=== PATIENT | female | born 2000 | race Caucasian/White ===

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

== ENCOUNTER 2022-09-10 15:46 | Emergency (ER) | payer OTHER, SELFPAY ==
[2022-09-10 15:56] VITALS: BP 122/61; PULSE 79; RESP 16; TEMP 36.7; O2SAT 100
--- NOTE | 2022-09-10 16:40 | ED.ABDPAIN ---
HPI - Abdominal Pain General Chief Complaint: Urogenital-Female Stated Complaint: Abdominal Pain,Nausea Time Seen by Provider: 09/10/22 16:35 Source: patient, RN notes reviewed and old records reviewed Mode of arrival: ambulatory Limitations: no limitations History of Present Illness HPI narrative: 21-year-old female who presents to [facility] with complaints for the past 4 day history of nausea vomiting with complaints of intermittent colicky pain under the umbilicus radiating to the right mid lower abdomen. Patient states she has had problems with weight loss and also nausea intermittently for the past 8 months. Patient reports she has had rapid weight loss over past 8 month's with weight starting at around 185 and now down to about 123 she has had hair loss also. Patient reports that she has history of past urinary tract infections, denies any suprapubic pain or CVA tenderness or present burning with urination, is sexually active unsure of any exposure to STDs does state some increase in vaginal discharge, denies any itching. Patient denies any fevers chills or sweats. MD elicited complaint: abdominal pain and other (nausea and vomiting) Onset (ago): day(s) (increase symptoms past 4 days) Pain Consistency: colicky Location: RLQ Pain scale (0-10): 4 Associated symptoms: nausea and vomiting Treatments prior to arrival: other (none) Related Data Home Medications Medication Instructions Recorded Confirmed No Home Medications 09/10/22 09/10/22 Allergies Allergy/AdvReac Type Severity Reaction Status Date / Time No Known Allergies Allergy Verified 09/10/22 16:00 Review of Systems Review of Systems: CONSTITUTIONAL: Denies fever, chills, or sweats. EYES: Denies visual changes, redness, or discharge. ENT: Denies rhinorrhea, congestion, sore throat, or otalgia. CARDIOVASCULAR: Denies chest pain, palpitations, or edema. RESPIRATORY: Denies cough or dyspnea. GASTROINTESTINAL: Reports pain under umbilicus radiating to right mid lower abdomen,positive for nausea, vomiting, or diarrhea. GENITOURINARY: Denies dysuria or hematuria. SKIN: Denies rash or itching. MUSCULOSKELETAL: Denies back pain, joint pain, or myalgia. NEUROLOGIC: Denies headache, numbness, or weakness. PSYCHIATRIC: Positive for anxiety or depression. All systems reviewed & are unremarkable except as noted in HPI and below PMFSH Past Medical History Medical History (Updated 09/11/22 @ 09:59 by Leslie Fry, ALVIN) Anxiety Depressive disorder Mononucleosis 2020 Urinary tract infection Surgical History Surgical History No pertinent past surgical history Family History Family History Grandparent Family history of malignant neoplasm Mother No pertinent past medical history Father No pertinent past medical history Other Family history of malignant neoplasm of breast Social History Social History Smoking status: Never smoker Alcohol intake: never Substance use: never Lack of Transportation: No Lack of Food: Never True Current Housing: I Have Housing Concerned About Future Housing: No Difficulty Paying Gas/Electric Bills: No Difficulty Paying for Meds: No Currently Unemployed: No Education: High School Diploma/GED Difficulty w/ Childcare or Family Care: No Living arrangements: with friend(s) Occupation/Education: student Gender identity (if verbalized by the patient): Female Spiritual care concerns: No Comments At time of signature, agree with nursing past medical, surgical, social and family history. There is no relevant family history pertinent to the presenting complaint Exam Narrative: GENERAL: Well-appearing, well-nourished, and in no acute distress. HEAD: Normocephalic, atraumatic. EYES: PERRLA and EOMI. ENT: Nares cl
== END 2022-09-10 16:50 | disposition home or self-care (01) ==
PROVIDERS: Emergency Provider Registered Nurse
DX: R10.31 Right lower quadrant pain (principal); R11.2 Nausea with vomiting, unspecified
CPT/HCPCS: 81003; 81025; 87086; 87088; 87491; 87591; 87661; 99213; G0463

== ENCOUNTER 2022-09-10 17:50 | Observation (INO) | payer OTHER, SELFPAY ==
--- NOTE | ~2022-09-10 | US_ITS ---
Limited Abdominal Sonogram: Real-time sonographic imaging of the right upper quadrant was performed. Clinical History: Nausea and vomiting Findings: The liver appears normal with no evidence of mass lesion or bile duct dilatation. Main por carmel vein demonstrates normal direction of flow. The gallbladder is well distended, without evidence o f stone or wall thickening. Partial focal cholesterolosis or septation the gallbladder. The common bi le duct measures 3 mm. The visualized pancreas, aorta, and IVC are unremarkable. Impression: Possible focal cholesterolosis or septation in the gallbladder. No other significant findings. Reviewed, dictated and finalized at location M. DIRECTOR Impression: Possible focal cholesterolosis or septation in the gallbladder. No other significant findings.
--- NOTE | ~2022-09-10 | US_ITS ---
Pelvic ultrasound. Clinical History: Pelvic pain Technique: Realtime transabdominal and transvaginal scanning of the pelvis was performed. Color flow Doppler and Doppler spectral analysis were performed. Findings: The uterus is anteverted. The endometrial stripe has a thickness of 11 mm. No focal mass i s identified. The right ovary measures 3.9 x 2.8 x 1.8 cm. No significant right ovarian or adnexal mass is seen. The left ovary measures 3.5 x 1.3 x 3.1 cm. No significant left ovarian or adnexal mass is seen. Vascular flow present in both ovaries on Doppler spectral analysis. There is no evidence of free fluid in the cul de sac. Impression: No significant abnormality seen. Reviewed, dictated and finalized at [facility]. ENT ATTENDANT Impression: No significant abnormality seen.
--- NOTE | ~2022-09-10 | US_ITS ---
Pelvic ultrasound. Clinical History: Right lower quadrant pain Technique: Realtime transabdominal scanning of the pelvis was performed. Patient refused transvaginal imaging. Findings: The uterus is anteverted. The endometrial stripe has a thickness of 11 mm. No focal mass i s identified. Neither ovary visualized. Appendix not visualized. There is no evidence of free fluid in the cul de sac. Impression: No significant abnormality seen. Appendix not visualized. Ovaries not visualized. Reviewed, dictated and finalized at location M. LEAF READER Impression: No significant abnormality seen. Appendix not visualized. Ovaries not visualize d.
--- NOTE | ~2022-09-10 | US_ITS ---
EXAMINATION: US pelvic complete w TV DATE: 09/10/2022 21:22 INDICATION: Right sided pelvic pain, vag discharge TECHNIQUE: Multiple transabdominal and endovaginal sonographic images of the pelvis were obtained. COMPARISON: None. FINDINGS: Uterus: 8.6 x 4.5 x 5.3 cm. Endometrial complex measures 11 mm. Right Ovary: 3.3 x 1.6 x 1.7 cm. Vascular flow is not present. Left Ovary: 3.1 x 1.2 x 1.6 cm. Vascular flow is present. There is small volume free fluid in the pelvis, still within visualized range. IMPRESSION: No vascular flow detected in the right ovary, a finding concerning for ovarian torsion. Results reported telephonically to Debi Rubi PA-C by Dr. Allen at 9:53 PM on 09/10/2022. Reviewed, dictated and finalized at location K. ACE PUNCHER IMPRESSION: No vascular flow detected in the right ovary, a finding concerning for ovarian torsion. Results reported telephonically to Debi Rubi PA-C by Dr. Allen at 9: 53 PM on 09/10/2022.
[2022-09-10 18:06] VITALS: BP 116/79; PULSE 71; RESP 18; TEMP 36.8; O2SAT 100
[2022-09-10 19:08] LABS: Basophils Absolute Auto 0.1 K/mm3 (0.0-0.1); Basophils Percent Auto 0.8 % (0.2-1.2); Eosinophils Absolute Auto 0.1 K/mm3 (0-0.3); Eosinophils Percent Auto 1.9 % (0-4.4); Hematocrit 39.5 % (37.0-47.0); Hemoglobin 12.3 g/dL (12.0-15.0); Immature Granulocyte Absolute 0.02 K/mm3 (0.00-0.031); Immature Granulocyte Percent A 0.3 % (0-0.5); Lymphocytes Absolute Auto 2.33 K/mm3 (0.9-3.2); Lymphocytes Percent Auto 36.6 % (18.3-44.2); Mean Corpuscular HGB Conc 31.1 g/dl (32-36); Mean Corpuscular Hemoglobin 25.2 pg (26-34); Mean Corpuscular Volume 80.9 fl (80-100); Mean Platelet Volume 9.4 fl (7.4-10.4); Monocytes Absolute Auto 0.6 K/mm3 (0.1-0.6); Monocytes Percent Auto 8.6 % (2.6-8.5); Neutrophils Absolute Auto 3.3 K/mm3 (1.3-6.7); Neutrophils Percent Auto 51.8 % (45.5-73.1); Platelet Count Result 297 k/mm3 (150-375); Red Blood Count 4.88 M/mm3 (4.2-5.4); Red Cell Distribution Width 15.2 % (11.5-14.5); White Blood Count 6.4 K/mm3 (4.5-10.0)
[2022-09-10 19:13] LABS: Appearance Urine Turbid (Clear); Bacteria Urine 2+ /hpf; Bilirubin Urine Negative (Negative); Blood Urine 2+ (Negative); Color Urine Yellow (Yellow); Glucose Urine UA Negative (Negative); Ketones Urine Negative (Negative); Leukocyte Esterase Ur 3+ LEU/UL (Negative); Nitrate Urine Negative (Negative); Non Pathogenic Casts 0-2; Protein Urine Negative (Negative); RBC Urine 0-2 /hpf (0-2); Specific Grav Ur 1.018 (1.001-1.035); Squamous Epithelial Cell Urine Many /hpf (Few)
[2022-09-10 19:24] LABS: Add Urine Microscopic? YES; Alanine Aminotransferase 15 U/L (6-35); Albumin Level 4.6 g/dL (3.7-5.6); Alkaline Phosphatase 69 U/L (45-116); Anion Gap 4 mmol/L (8-16); Aspartate Amino Transferase 18 U/L (14-36); Bilirubin,Total 0.4 mg/dL (0.2-1.3); Blood Urea Nitrogen 10 mg/dL (8-21); Calcium 9.8 mg/dL (8.9-10.7); Carbon Dioxide 26 mmol/L (22-30); Chloride 106 mmol/L (98-107); Estimated CRCL calculation 85 ml/min; Estimated Glomerular Filt Rate > 60; Glucose 82 mg/dL (65-110); Lipase 96 U/L (23-300); Potassium 4.2 mmol/L (3.4-5.0); Sodium 136 mmol/L (134-143)
[2022-09-10 19:37] LABS: Pregnancy On Board Control Positive; Urine Pregnancy Test Negative
--- NOTE | 2022-09-10 20:35 | ED.ABDPAIN ---
HPI - Abdominal Pain General Chief Complaint: Abdominal Pain <CATE Urbano Last Filed: 09/11/22 02:53> Stated Complaint: Abdominal pain, weight loss <CATE Urbano Last Filed: 09/11/22 02:53> Time Seen by Provider: 09/10/22 19:23 <CATE Urbano Last Filed: 09/11/22 02:53> History of Present Illness HPI narrative: 21 year old female here for evaluation of lower abdominal pain x 8 months. Patient states that the pain is usually present in her right lower abdomen and also in her pelvic region, coming on at random without warning. Denies relation to meals. She reports a large weight loss over the past 8 months since she had noted this pain. Also reports numerous episodes of diarrhea that she states are pale yellow in color and sometimes greasy. Also reports increased vaginal discharge. No nausea or vomiting, fevers or chills, sick contacts. She came in to be evaluated to the ED today because she recently received insurance and her pain acutely worsened. <CATE Urbano Last Filed: 09/11/22 02:53> Related Data Allergies/Adverse Reactions: Allergies Allergy/AdvReac Type Severity Reaction Status Date / Time No Known Allergies Allergy Verified 09/10/22 16:00 <CATE Urbano Last Filed: 09/11/22 02:53> Review of Systems Review of Systems: Gen.: Denies fevers or chills Eyes: Denies eye pain or visual change ENT: Denies congestion Respiratory: Denies shortness of breath or cough CV: Denies chest pain or palpitations GI: Denies abdominal pain nausea, emesis or diarrhea reports vaginal discharge and right-sided pelvic pain. Musculoskeletal: Denies back pain or muscle pain Neuro: Denies numbness, tingling, weakness or focal weakness Skin: Denies rash Except as documented, all other systems reviewed and negative <CATE Urbano Last Filed: 09/11/22 02:53> [facility] Past Medical History Medical History: Medical History (Updated 09/11/22 @ 09:59 by Leslie Fry NP) Anxiety Depressive disorder Mononucleosis 2020 Urinary tract infection <Debi Rubi PA-C - Last Filed: 09/11/22 02:53> Surgical History Surgical History: Surgical History No pertinent past surgical history <Debi Rubi PA-C - Last Filed: 09/11/22 02:53> Family History Family History: Family History Grandparent Family history of malignant neoplasm Mother No pertinent past medical history Father No pertinent past medical history Other Family history of malignant neoplasm of breast <Debi Rubi PA-C - Last Filed: 09/11/22 02:53> Social History Social History: Social History Smoking status: Never smoker Alcohol intake: never Substance use: never Lack of Transportation: No Lack of Food: Never True Current Housing: I Have Housing Concerned About Future Housing: No Difficulty Paying Gas/Electric Bills: No Difficulty Paying for Meds: No Currently Unemployed: No Education: High School Diploma/GED Difficulty w/ Childcare or Family Care: No Living arrangements: with friend(s) Occupation/Education: student Gender identity (if verbalized by the patient): Female Spiritual care concerns: No <Debi Rubi PA-C - Last Filed: 09/11/22 02:53> Exam Narrative: APPEARANCE: Thin but otherwise well-appearing. Head: Normocephalic and atraumatic. EYES: PERRLA/EOMI, conjunctivae clear NOSE: No nasal drainage EARS: External ear normal in appearance THROAT: Oropharynx is clear. Mucous membranes are moist. NECK: Supple. No adenopathy, no masses. RESPIRATORY: Airway patent, respirations nonlabored. Clear to auscultation bilaterally, no rales, rhonchi, wheezing. CARDIOV
[2022-09-10] MEDS: KETOROLAC 30 MG/ML VIAL (*BKC) IM (21:11)
[2022-09-10 22:28] VITALS: BP 124/92; PULSE 64; RESP 22; O2SAT 100
[2022-09-10] MEDS: SODIUM CHLORIDE 0.9% IV 1,000 ML 999 ML IV CONT (23:02)
[2022-09-10] MEDS: LORazepam INJ (*CRX) 2 MG/ML VIAL 0.5 MG IV PUSH (23:03)
[2022-09-10 23:20] VITALS: BP 118/83; PULSE 73; RESP 18; TEMP 37; O2SAT 100
[2022-09-11] MEDS: SODIUM CHLORIDE 0.9% IV 1,000 ML 150 ML IV CONT (00:06)
[2022-09-11] MEDS: ZOLPIDEM TARTRATE (*CRX) 5 MG TABLET PO (01:20)
[2022-09-11 09:15] VITALS: BP 110/65; PULSE 76; RESP 16; TEMP 37.2; O2SAT 100
[2022-09-11] MEDS: KETOROLAC 30 MG/ML VIAL (*BKC) 15 MG IV PUSH (10:10)
[2022-09-11] MEDS: ONDANSETRON INJ 4 MG/2 ML VIAL (11:05)
[2022-09-11 11:35] VITALS: BP 117/66; PULSE 69; RESP 16; TEMP 36.7; O2SAT 100
--- NOTE | 2022-09-15 08:25 | PM.IMHP ---
H&P: HPI History of Present Illness Date/Time: 09/15/22 08:25 Chief Complaint: abdominal pain Narrative: The patient is a 21-year-old 0 admitted through the emergency room. Per the emergency room workup pelvic ultrasound was performed secondary to right lower quadrant pain which showed no blood flow to the right ovary which measured 3x1 and 0.5cm. Patient required only Toradol for control of her pain. It was suspected to to the level of pain and the small size of the ovary that the ovary was not torsed. Patient was admitted overnight for observation and required no additional pain medication and slept through the night with a dose of Ambien. On my arrival to the patient room she is sound asleep and had to be awakened. The plan for a repeat ultrasound to verify good blood flow to the right ovary was discussed with the patient. The patient became quite angry with me and the plan. The patient stated she would just rather leave than have the ultrasound repeated if I was not planning to just remove her ovary. The patient went on to state that she came to the emergency room because she just found out she had insurance and the pain had been present for approximately 8 months. In addition the patient stated she had been having upper abdominal pain and nausea and vomiting with a 70lb weight loss. Discussed with the patient that since she had been NPO we could also order a gallbladder ultrasound. The patient repeatedly stated that I was not listening or taking her seriously and she was just planning to leave. The patient's sister asked for a moment to talk with her and after that conversation the patient agreed to stay and have the ultrasound but declined vaginal ultrasound. The patient went for the pelvic ultrasound which was not able to visualize either ovary. The right upper quadrant ultrasound was also not performed at that time. After further discussion the patient agreed to the pelvic ultrasound and right upper quadrant ultrasound which were performed and normal. The right ovary had good blood flow and was the same size as the night before. The patient was discharged home on Toradol and Zofran and instructed to follow-up with primary care physician as assigned by the emergency room and follow-up with me to further investigate the cause of her symptoms. REPLACED BY [facility] Past Medical History Medical History (Updated 09/11/22 @ 09:59 by Leslie Fry NP) Anxiety Depressive disorder Mononucleosis 2020 Urinary tract infection Surgical History Surgical History No pertinent past surgical history Family History Family History Grandparent Family history of malignant neoplasm Mother No pertinent past medical history Father No pertinent past medical history Other Family history of malignant neoplasm of breast Social History Social History Smoking status: Never smoker Alcohol intake: never Substance use: never Lack of Transportation: No Lack of Food: Never True Current Housing: I Have Housing Concerned About Future Housing: No Difficulty Paying Gas/Electric Bills: No Difficulty Paying for Meds: No Currently Unemployed: No Education: High School Diploma/GED Difficulty w/ Childcare or Family Care: No Living arrangements: with friend(s) Occupation/Education: student Gender identity (if verbalized by the patient): Female Spiritual care concerns: No Meds Home Medications and Allergies Home Medications Medication Instructions Recorded Confirmed Type ketorolac 10 mg tablet 10 mg PO Q6H PRN pain 5 days #20 09/11/22 Rx tabs ondansetron 4 mg disintegrating 4 mg PO Q6H NAUSEA #30 tabs 09/11/22 Rx tablet Allergies Allergy/AdvReac Type Severity Reaction Status Date / Time No Known Jose
--- NOTE | 2022-09-15 08:34 | PM.OBTRLD ---
OB - Triage/Final Diagnosis Visit Information Reason for evaluation: other ( abdominal pain; nausea and vomiting) Comments/Additional reasons for admission: I have assessed the risk for this patient, Mohit Jayden Ventura, and determined that she would benefit from observation care. Evaluation Laboratory results: Laboratory Tests 09/10/22 09/10/22 09/10/22 18:56 18:56 18:56 WBC 6.4 RBC 4.88 Hgb 12.3 Hct 39.5 MCV 80.9 MCH 25.2 L MCHC 31.1 L RDW 15.2 H Plt Count 297 MPV 9.4 Immature Gran % (Auto) 0.3 Neut % (Auto) 51.8 Lymph % (Auto) 36.6 Luna % (Auto) 8.6 H Eos % (Auto) 1.9 Baso % (Auto) 0.8 Lymph # (Auto) 2.33 Luna # (Auto) 0.6 Eos # (Auto) 0.1 Baso # (Auto) 0.1 Abs Immat Gran (auto) 0.02 Absolute Neuts (auto) 3.3 Absolute Nucleated RBC 0.0 Nucleated RBC % 0.0 Sodium 136 Potassium 4.2 Chloride 106 Carbon Dioxide 26 Anion Gap 4 L BUN 10 Creatinine 0.80 Estim Creat Clear Calc 85 Estimated GFR > 60 Glucose 82 Calcium 9.8 Total Bilirubin 0.4 AST 18 ALT 15 Alkaline Phosphatase 69 Total Protein 8.0 Albumin 4.6 Lipase 96 Urine Color Yellow Urine Appearance Turbid H Urine pH 7.0 Ur Specific [place] 1.018 Urine Protein Negative Urine Glucose (UA) Negative Urine Ketones Negative Ur Blood (Man) 2+ H Urine Nitrate Negative Urine Bilirubin Negative Urine Urobilinogen 1.0 Leukocyte Esterase Rfl 3+ H Urine RBC 0-2 Urine WBC 6-10 H Ur Squamous Epith Cells Many H Urine Bacteria 2+ H Urine Casts 0-2 Urine Test 09/10/22 18:56 WBC RBC Hgb Hct MCV MCH MCHC RDW Plt Count MPV Immature Gran % (Auto) Neut % (Auto) Lymph % (Auto) Luna % (Auto) Eos % (Auto) Baso % (Auto) Lymph # (Auto) Luna # (Auto) Eos # (Auto) Baso # (Auto) Abs Immat Gran (auto) Absolute Neuts (auto) Absolute Nucleated RBC Nucleated RBC % Sodium Potassium Chloride Carbon Dioxide Anion Gap BUN Creatinine Estim Creat Clear Calc Estimated GFR Glucose Calcium Total Bilirubin AST ALT Alkaline Phosphatase Total Protein Albumin Lipase Urine Color Urine Appearance Urine pH Ur Specific [place] Urine Protein Urine Glucose (UA) Urine Ketones Ur Blood (Man) Urine Nitrate Urine Bilirubin Urine Urobilinogen Leukocyte Esterase Rfl Urine RBC Urine WBC Ur Squamous Epith Cells Urine Bacteria Urine Casts Urine Test Negative
== END 2022-09-11 14:30 | disposition home or self-care (01) ==
LOC: ANHED 22:13 → ANHOB2 22:33
PROVIDERS: Emergency Medicine; Admitting Provider Obstetrics & Gynecology Gynecology; Emergency Provider Physician Assistant; Visit Provider Obstetrics & Gynecology Gynecology
DX: R10.31 Right lower quadrant pain (principal); R11.2 Nausea with vomiting, unspecified; R63.4 Abnormal weight loss; Z68.52 Body mass index [BMI] pediatric, 5th percentile to less than 85th percentile for age; N89.8 Other specified noninflammatory disorders of vagina; F41.9 Anxiety disorder, unspecified; F32.A Depression, unspecified; Z87.440 Personal history of urinary (tract) infections
CPT/HCPCS: 36415; 76705; 76830; 76856; 80053; 81001; 81003; 81025; 83690; 85025; 87086; 87088; 87491; 87591; 87661; 96365; 96372; 96374; 96375; 99213; 99285; A9270; G0378; G0379; G0463; J0696; J1885; J2060; J2405; J7030

== ENCOUNTER 2024-10-19 12:26 | Emergency (ER) | payer BC, SELFPAY ==
[2024-10-19 12:39] VITALS: BP 107/62; PULSE 61; RESP 16; TEMP 36.9; O2SAT 100
--- NOTE | 2024-10-19 12:40 | ED_ITS ---
HPI - Skin/Abscess/Foreign Bdy General Chief complaint: Skin/Abscess/Foreign Body Stated complaint: rash on shoulders Time Seen by Provider: 10/19/24 12:30 Source: patient Mode of arrival: ambulatory Limitations: no limitations History of Present Illness HPI narrative: Patient is a 23-year-old female who presents with rash to bilateral shoulders, back, and buttocks. Patient states she had full body wax prior to going [place]. Thursday patient was on a boat and had large amount of sun exposure. Patient states she has used sunscreen that she normally does use and applied frequently to shoulder and back. Patient states she noticed rash 3 days ago started on her buttocks that has moved up her back into shoulders. Reports intermittent itchiness. Describes rash is small red bumps Related Data Home Medications ?Medication ?Instructions ?Recorded ?Confirmed ?Last Taken ?Type etonogestrel 68 mg subdermal 68 mg subdermal ONCE 10/19/24 10/19/24 Unknown History implant (Nexplanon) Allergies Allergy/AdvReac Type Severity Reaction Status Date / Time No Known Allergies Allergy Verified 10/19/24 12:40 Review of Systems Review of Systems: All systems reviewed & are unremarkable except as noted in HPI and below Constitutional: Constitutional: Denies body ache(s), Denies chills, Denies fatigue, Denies fever(s), Denies headache(s), Denies malaise and Denies weakness Eyes: Eyes: Denies blurry vision, Denies irritation and Denies loss of vision ENT: Denies otalgia, Denies headache(s), Denies nasal discharge, Denies sinus pain and Denies sore throat Cardiovascular: Cardiovascular: Denies chest pain, Denies irregular heart rh ythm and Denies dyspnea Respiratory: Respiratory: Denies dyspnea Gastrointestinal: Gastrointestinal: Denies abdominal pain, Denies melena, Denies hematochezia, Denies diarrhea, Denies nausea and Denies vomiting Musculoskeletal: Musculoskeletal: Denies back pain, Denies myalgias and Denies arthralgias Integumentary/Breasts: Skin/Breast: Reports pruritus and Reports rash Neurologic: Denies headache(s), Denies loss of vision and Denies weakness Psychiatric: Psychiatric: Reports no additional psychiatric complaints Endocrine: Endocrine: Denies fatigue PMFSH Past Medical History Medical History PTSD (post-traumatic stress disorder) Moderately severe major depression Mononucleosis 2020 Urinary tract infection Depressive disorder Anxiety Surgical History Surgical History No pertinent past surgical history Family History Family History Grandparent Family history of malignant neoplasm Mother Depression Thyroid disorder Father Depression Other Family history of malignant neoplasm of breast Social History Social History Smoking status: Never smoker Alcohol intake: current Alcohol use details: 1- 4 drinks per week Substance use: current Substance use type: marijuana Lack of Transportation: No Lack of Food: Never True Current Housing: I Have Housing Concerned About Future Housing: No Difficulty Paying Gas/Electric Bills: No Difficulty Paying for Meds: No Currently Unemployed: No Education: High School Diploma/GED Difficulty w/ Childcare or Family Care: No Living arrangements: with friend(s) Occupation/Education: student Gender identity (if verbalized by the patient): Female Spiritual care concerns: No Comments At time of signature, agree with nursing past medical, surgical, social and family history. There is no relevant family history pertinent to the presenting complaint. Exam Const: General: cooperative, healthy appearing, comfortable, no acute distress and well nourished Nutritional Appearance: well nourished Orientation/consciousness: patient oriented x3 Limitations: no limitations HENMT: Head: normal to inspection, normocephalic and atraumatic Ears: hearing grossly normal bilaterally and external ears normal Face/Nose/Sinus: Normal external nose present, normal facial exam and face symmetric Face and sinus: normal facial exam and face symmetric Mouth: Yes lip normal Eyes: General: appearance normal, both eyes and all related structures Alignment and Position: alignment normal and position normal Periorbital: periorbital findings normal Eyelids: eyelids normal Pupils: Equal, round and reactive pupils present EOM: EOMs intact bilaterally Neck: Neck: normal visual inspection, full ROM and supple Chest: Chest palpation & inspection: normal inspection of the chest Resp: Effort & Inspection: normal respiratory effort and able to speak in complete sentences Auscultation: clear to auscultation bilaterally Cardio: Rate: regular rate Rhythm: regular rhythm Heart sounds: S1 normal heart sound present and S2 normal heart sound present GI: Inspection: normal to inspection Skin: General skin exam: normal color Rashes: rashes noted papules bilateral multiple locations size (pin point size), arrangement (diffuse to buttock, back and shoulders), borders sharp, color red and surface erythematous; not indurated, not warm, not waxy and without crusting; fluctuant not assessed and nontender Neuro: General: patient oriented x3 and moves all extremities Cranial nerves: Yes Equal, round and reactive pupils present Speech: normal speech Gait exam (Neuro): Normal gait present Extrem: General: normal to inspection, full ROM and no edema Psych: Appearance: grossly normal and well kempt Mental Status: mental status grossly normal Speech and movement: Normal speech and movement present Affect: normal affect Attitude: cooperative Thought process: Normal thought process present Course Course Emergency Course: Patient is aware of diagnosis, understands and agrees to treatment plan. Anticipatory guidance given. Patient agrees to follow-up as directed and is aware of reasons to seek care at the emergency department. Portions of this record may have been created with voice recognition software Level of Care: Express Care Visit Vital Signs Vital signs: Vital Signs Temperature 36.9 C 10/19/24 12:39 Pulse Rate 61 10/19/24 12:39 Respiratory Rate 16 10/19/24 12:39 Blood Pressure 107/62 10/19/24 12:39 Pulse Oximetry 100 10/19/24 12:39 Oxygen Delivery Room Air 10/19/24 12:39 Temperature 36.9 C 10/19/24 12:39 Pulse Rate 61 10/19/24 12:39 Respiratory Rate 16 10/19/24 12:39 Blood Pressure 107/62 10/19/24 12:39 Pulse Oximetry 100 10/19/24 12:39 Oxygen Delivery Room Air 10/19/24 12:39 Reviewed MDM - Skin/Abscess/Foreign Bdy MDM Narrative Medical decision making narrative: Discussed follow-up with Dermatology if no improved Pt well hydrated appearing, in no respiratory distress, hemodynamically stable. Recommend supportive care. The patient is stable at time of discharge the clinical impression was discussed and the patient was given the opportunity to ask questions, which were addressed as completely as possible given the information available at present. Anticipatory guidance and return to care precautions were discussed and the importance of primary care follow-up was stressed and encouraged. The patient voiced understanding of the plan, indications to return, and the need for follow-up. Exam findings show no acute concerns or changes Patient is appropriate for outpatient treatment and follow-up. Differential Diagnosis Differential diagnosis: Likely viral exanthem, allergic reaction to drug, cellulitis, insect bites and contact dermatitis Medical Records Attestation: I reviewed the patient's medical records. Discharge Plan Discharge Clinical Impression: Contact dermatitis Qualifiers: Contact dermatitis type: unspecified Contact dermatitis trigger: unspecified trigger Qualified Code(s): L25.9 - Unspecified contact dermatitis, unspecified cause Patient Disposition: Home Condition: Stable Instructions: Contact Dermatitis (ED) Additional Instructions: Take steroid in the morning with food. Take Claritin, Zyrtec or Tara in the morning along with Benadryl at night. Wash the skin thoroughly with soap and cool water as soon as possible. Scrub under the fingernails with a brush to prevent spreading to other parts of the body by touching or scratching. For some people, adding oatmeal to a bath, applying cool wet compresses, and applying calamine lotion may help to relieve itching IF symptoms get worse to follow up with your primary care provider or seek ER visit if you developing difficulty breathing, weakness, dizziness Patient Language: [place] Prescriptions: New prednisone 10 mg tablet See Rx Instructions .ROUTE .COMPLEX Qty: 21 0RF Rx Instructions: 40 mg daily for 3 days, 20 mg daily for 3 days, 10 mg daily for 3 days No Action Nexplanon 68 mg implant 68 mg subdermal ONCE Rx Instructions: as a single dose quetiapine 25 mg tablet 25 mg PO QHS Qty: 30 5RF buspirone 5 mg tablet See Rx Instructions PO BID Qty: 100 0RF Rx Instructions: start 1 tab 2x/day and increase by 1 tab every 3 days to max dose 3 tabs 2x/day. Call for refill Follow-up/Referrals: Sweta Viera NP [Primary Care Provider] - 3 Days Time of Disposition: 13:05
--- OUTSIDE RECORDS SUMMARY | 2024-10-19 13:27 | XMS_ITS | Data Portability ---
Author Organization [facility] [place] Address [address] [place] [address] Assessment Encounter Date Assessment Date Assessment LastModified by Organization Details LastModified Time 08/16/2024 08/16/2024 Annual gynecological exam performed. Patient will come back in a year unless there are new symptoms. [email or web address] Not available 08/12/2024 11:19:00 Plan of Treatment Reminders Order Date Submit Date Provider Last Modified By Organization Details Last Modified Time Details Appointments None recorded. Lab test, urine 2024 025 [email or web address] [facility], [address], [place], [address], 5 18:13:24 TSH, serum, reflex free T4 [address] [facility] (Lab), [address] [place], [address], 5 04:07:11 vitamin D, 25-hydroxy , total, serum [address] [facility] (Lab), [address] [place], [address], 5 04:07:11 CBC w/ diff [address] [facility] (Lab), [address] [place], [address], 5 04:07:11 Referral None recorded. Procedures None recorded. Surgeries None recorded. Imaging None recorded. Medication Orders Nexplanon 68 mg subdermal implant 2024 025 [email or web address] [id number], [address], [place], [id number], 18:14:20 Patient TargetsNo targets recorded. Patient InstructionsNo instructions recorded. Reason for Referral None Reported. Results Created Date Observation Date Name Description Value Unit Range Abnormal Flag Note LastModifiedBy Organization Detail LastModifiedTime 09/07/19 25 09/06/2024 pregn petros test, urine HCG negati ve Not Available [place] [address], [place], [address], 09/06/2024 18:07:45 Result Notes None recorded. Procedures Surgical History Date Name Laterality Status Provider Name and Address Organization Details Recorded Time 09/07/19 25 MM Nexplanon insert completed GIULIANA CRAWFORD NP [address], [place], [address], [facility] 09/06/2024 18:06:53 04/05/20 24 Breast augmentation w/implt completed GIULIANA CRAWFORD NP [address], [place], [address], [facility] 08/16/2024 17:08:28 Imaging Results None recorded. Procedure Notes None recorded. Medical Equipment None Reported. Allergies No known drug allergies Medications Name Sig Start Date Stop Date Status Note LastModified by Organization Details LastModified Time buspirone 5 mg tablet active Not Available Not Available No t Available fluconazole 150 mg tablet TAKE 1 TABLET BY MOUTH 1 TIME. MAY REPEAT A DOSE IN 72 HOURS IF SYMPTOMS HAVE NOT COMPLETEL Y RESOLVED 08/16 completed Not Available Not Available Not Available Wellbutrin SR 150 mg tablet, 12 hr sustained-r elease active Not Available Not Available Not Available bupropion HCl XL 150 mg 24 hr tablet, extended release TAKE 1 TABLET BY MOUTH EVERY MORNING active Not Available Not Available No t Available Nexplanon 68 mg subdermal implant Inject 1 implant by subcutane ous route. 2024 active Not Available Not Available Not Avai lable Estarylla 0.25 mg-0.035 mg tablet TAKE 1 TABLET BY MOUTH EVERY DAY. SKIP PLACEBOS 08/16 completed Not Available Not Available Not Available Vitals Date Recorded Body height Body mass index (BMI) Body weight Systolic blood pressure Diastolic blood pressure Provider Name and Address Organization Details Last Updated DateTime 08/16/2024 170.18 cm 19.8 kg/m2 16345.79 g 100 mm[Hg] 66 mm[Hg] [facility] 16:54:48 Date Recorded Body height Body mass index (BMI) Body weight Systolic blood pressure Diastolic blood pressure Provider Name and Address Organization Details Last Updated DateTime 09/06/2024 170.18 cm 19.8 kg/m2 84096.36 g 119 mm[Hg] 77 mm[Hg] [facility] 18:06:26 Social History Question Answer Notes LastModified by Organizat ion Details LastModified Time Do You Have An Advance Directive? No [email or web address] Information n ot available 08/16/2024 What Is Your Level Of Alcohol Consumption? Occasional [email or web address] Information not available 08/16/2024 How Many Years Have You Consumed Alcohol? 1 [email or web address] Information not available 08/16/2024 Are You Blind Or Do You Have Difficulty Seeing? No [email or web address] Information n ot available 08/16/2024 What Is Your Level Of Caffeine Consumption? Occasional [email or web address] Information not available 08/16/2024 How Much Tobacco Do You Chew? None [email or web address] Information not available 08/16/2024 In The 14 Days Before Symptom Onset, Have You Had Close Contact With A Laboratory-confirm ed COVID-19 While That Case Was Ill? No [email or web address] Information n ot available 08/16/2024 In The 14 Days Before Symptom Onset, Have You Had Close Contact With A Person Who Is Under Investigation For COVID-19 While That Person Was Ill? No [email or web address] Information not available 08/16/2024 Have You Been To An Area Known To Be High Risk For COVID-19? No [email or web address] Information not available 08/16/2024 Are You Deaf Or Do You Have Serious Difficulty Hearing? No [email or web address] Information not available 08/16/2024 What Type Of Diet Are You Following? REGULAR [email or web address] Information n ot available 08/16/2024 What Is The Highest Grade Or Level Of School You Have Completed Or The Highest Degree You Have Received? [id number] [email or web address] Information not available 08/16/2024 Are There Any Guns Present In Your Home? No [email or web address] Information not available 08/16/2024 Do You Use Protection During Sex? Usually [email or web address] Information not available 08/16/2024 Do You Use Your Seat Belt Or Car Seat Routinely? Yes [email or web address] Information not available 08/16/2024 Do You Have Smoke And Carbon Monoxide Detectors In Your Home? Yes [email or web address] Information not available 08/16/2024 At What Age Did You Start Smoking Tobacco? 20 [email or web address] Information not available 08/16/2024 How Much Tobacco Do You Smoke? 1 PPW [email or web address] Information not available 08/16/2024 Do You Feel Stressed (tense, Restless, Nervous, Or Anxious, Or Unable To Sleep At Night)? [id number] [email or web address] Information not available 08/16/2024 Do You Use Any Illicit Or Recreational Drugs? No [email or web address] Information not available 08/16/2024 Do You Use Sunscreen Routinely? No [email or web address] Information not available 08/16/2024 How Many Years Have You Smoked Tobacco? 3 [email or web address] Information not available 08/16/2024 Have You Used IV Drugs? No [email or web address] Information not available 08/16/2024 Sex: Unknown Functional Status Question Answer Note LastModified by Organization D etails LastModified Time Are you able to walk? YESWOREST [email or web address] Information not available 08/16/2024 What is your exercise level? Moderate [email or web address] Information not available 08/16/2024 Mental Status None recorded. Family History Relationship Description Onset Age of this Age Resolved Age Notes LastModified by Organization Details LastModified Time Unspecified Relation Family history unknown [email or web address] Not available 2024 16:47:41 Medical History Condition Response No Past Medical History Y Gynecological History Statement/Question Response Flow Heavy Date of LMP 09/04/2024 Sexually Active? Y STIs/STDs N Age of first menstrual cycle 15 Sexual Problems? N Current Control Method Implant LMP Definite Obstetrics History GPAL:G 0 P 0 0 0 0 Past Encounters Encounter ID Performer Location Encounter Start Date Encounter Closed Date Diagnosis/Indication Diagnosis SNOMED-CT Code Diagnosis ICD10 Code Diagnosis Note [id number] GIULIANA CRAWFORD NP [facility] [address] [address] 08/16/2024 16:45:40 08/16/2024 17:32:34 Contraception care management 939595909 Z30.9 Discussed all control options in depth and pt is interested in Nexplanon. Discussed all risks and benefits including irregular unschedule d bleeding. Pt verbalized understand ing and would like to proceed. She is aware that she needs to call us on the 1st day of her period to schedule placement. Patient to also RTO for well woman exam/pap smear. Fatigue 20003095 R53.83 Will send lab studies to r/o causes of fatigue such as thyroid abnormalit ies, anemia, and vitamin D deficiency .Recommend ed that patient see PCP as well. [id number] GIULIANA CRAWFORD NP [facility] [address] [address] 09/06/2024 17:59:49 09/06/2024 18:18:55 Insertion of subcutaneous contraceptive done [id number] 58607 Z30.46 1. The patient was instructed that the pressure dressing should remain in place until tomorrow. Most women do not experience pain after insertion, but if it occurs, OTC pain medication usually provide relief. She should call the provider if she develops pain, discharge, or swelling at the insertion site, fever, or other concerns.2 . Back-up contracept ion may be required.3 . The implant will need to be replaced in three years. Health Concerns Section Related Observation LastModified by Organization Detai ls LastModified Time None Recorded Concern Status LastModified by Organization Details LastModified Time None Recorded Advance Directives Directive N: Payers Encounter Date Sequence Insurance Name Policy Number Policy Schwarz Covered Member ID Schwarz Member ID Guarantor Name 08/16/2024 1 [place] [address] [id number] Mohit Ventura 09/06/2024 1 [place] [address] [id number] Mohit Ventura Notes Date Note Type Note Provider Name and Address Organization Details Recorded Time 08/16/2024 text/html New patient presents to establish care and to discuss control options. Patient states that she has previously taken COCs, but felt that the pills negatively affected her mood and weight. Patient interested in Nexplanon.Thiago beebe reports increased fatigue over the past few months, often having to take a nap during the day. Patient concerned since her mother has history of thyroid issues. Patient does not have PCP. GIULIANA CRAWFORD NP [address], [place], [address], [facility] 08/16/2024 17:21:55 09/06/2024 text/html Patient is here for Nexplanon insertion. UPT negative. She was given all the r/b/a of insertion of the Nexplanon device and has signed the consent. She is fully aware of all possible side effects of the device and has decided to move forward with placement. GIULIANA CRAWFORD NP [address], [place], [address], [facility] 09/06/2024 18:15:55 OBGyn Episode No OBEpisode recorded.
--- OUTSIDE RECORDS SUMMARY | 2024-10-19 13:27 | XMS_ITS | Clinical Summary ---
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 Gender Identity Not on file Sexual Orientation Not on file Plan of Treatment Health Maintenance Due Date Last Done Comments Hepatitis C Virus (HCV) Screening 2002 TdaP Immunization 2002 Human Papillomavirus (HPV) Immunization (1 - 3-dose series) 2017 Meningococcal B Immunization (1 of 2 - Standard) 2018 Influenza Immunization (#1) 2024 06/07/2003 SARS-COV-2 Immunization (2 - season) 2024 07/31/2021 Respiratory Syncytial Virus (RSV) Immunization (Adult) (1 - 1-dose 75+ series) 2077 Hepatitis B Immunization Completed 004, 2002, 2002 Pneumococcal Immunization Combined Aged Out 09/01/2003, 05/10/2003, 03/08/2003, Additional history exists No longer eligible based on patient's age to complete this topic DTaP/Tdap/Td Immunization Discontinued 2007, 05/10/2003, 03/08/2003, Additional history exists Measles Mumps Rubella (MMR) Immunization Discontinued 12/15/2007, 12/21/2003 Polio (IPV) Immunization Discontinued 008, 09/01/2003, 04/26/2003, Additional history exists Varicella Immunization Discontinued 12/15/2007, 2003 Hepatitis A Immunization Discontinued 02/19/2009, 12/04 Meningococcal Immunization (ACWY) Completed 04/11/2020 Rotavirus Immunization Aged Out No lo nger eligible based on patient's age to complete this topic
--- OUTSIDE RECORDS SUMMARY | 2024-10-19 13:27 | XMS_ITS | Clinical Summary ---
Author Organization [facility] Address [address] [place] [address] Care Team Providers Care School Laboratory Technician Name Role Phone Unavailable Primary Care Provider Unavailabl e Source Comments [facility],non-owned Affiliates and Associated Physician Practices is amultiple site organization consisting of ambulatory clinics and hospital sitesin [place], [place], [place] and [place]. This disclosure is being madepursuant to the Care Everywhere program and may not contain all information available regarding this patient. 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 Gender Identity Not on file Sexual Orientation Not on file Last Filed Vital Signs Vital Sign Reading Time Taken Comments Blood Pressure 126/92 11/06/2023 1:57 PM CDT Pulse 88 11/06/2023 1:57 PM CDT Temperature 36.6 C (97.8 F) 11/06/2023 1:57 PM CDT Respiratory Rate 17 11/06/2023 1:57 PM CDT Oxygen Saturation 100% 11/06/2023 1:57 PM CDT Inhaled Oxygen Concentration - - Weight 59 kg (130 lb) 11/06/2023 1:57 PM CDT Height 167.6 cm (5' 6 ) 11/06/2023 1:57 PM CDT Body Mass Index 20.98 11/06/2023 1:57 PM CDT Plan of Treatment Health Maintenance Due Date Last Done Comments PAP SMEAR 2002 HIV SCREENING 2017 HPV VACCINE (1 - 3-dose series) 2017 CHLAMYDIA/GONORRHEA SCREENING 2018 MENINGOCOCCAL (Group B) VACCINE SHARED DECISION-MAKING (1 of 2 - Standard) 2018 HEPATITIS C SCREENING 10/27/2020 DTAP/TDAP/TD VACCINES (1 - Tdap) 2021 HEPATITIS B VACCINE (1 of 3 - 19+ 3-dose series) 2021 COVID-19 VACCINE (2 - 2023-2 5 season) 2024 07/31/2021 DEPRESSION SCREENING 07/06/2024 INFLUENZA VACCINE (Season Ended) 2025 06/20/2009, 04/21/2008, 06/07/2003 ZOSTER VACCINE (1 of 2) 2052 MENINGOCOCCAL GROUPS A/C/Y/W VACCINE Completed 04/11/2020 HIB VACCINE Aged Out No longer eligi ble based on patient's age to complete this topic PNEUMOCOCCAL VACCINE Aged Out No long er eligible based on patient's age to complete this topic Insurance MEDICAID [employer] [id number]
== END 2024-10-19 13:08 | disposition home or self-care (01) ==
PROVIDERS: Emergency Provider Nurse Practitioner Family; PCP Nurse Practitioner Family
DX: L25.9 Unspecified contact dermatitis, unspecified cause (principal); F12.90 Cannabis use, unspecified, uncomplicated; F32.9 Major depressive disorder, single episode, unspecified; F41.9 Anxiety disorder, unspecified
CPT/HCPCS: 99213; G0463